=== PATIENT | male | born 1945 | race African-American/Black ===

== ENCOUNTER 2023-02-09 08:01 | Emergency (ER) | payer MEDICARE, OTHER | END 2023-02-09 08:32 | disposition home or self-care (01) | LOC: BURERS 08:01 | DX: U07.1 COVID-19 (principal); I10 Essential (primary) hypertension | CPT/HCPCS: 87635; 99283 ==

== ENCOUNTER 2024-02-24 19:22 | Emergency (ER) | payer MEDICARE ==
[~2024-02-24 19:22] MED LIST: Rocuronium Bromide 10 MG/ML (10ML VIAL) ONE
[2024-02-24] MEDS ORDERED: fentaNYL 50 mcg/mL 1 mL Vial ONE ×2 (19:35→19:50)
[2024-02-24] MEDS ORDERED: cefTRIAXone (ROCEPHIN) 2 GM VIAL ONE (19:54)
[2024-02-24 19:56] LABS: Hematocrit 50.2 % (42.0-52.0); Hemoglobin 16.3 g/dL (14.0-18.0); Mean Corpuscular HGB CONC 32.5 g/dL (32.0-36.0); Mean Corpuscular Hemoglobin 28.8 pg (27.0-31.0); Mean Corpuscular Volume 88.7 fl (78.0-98.0); Platelet Count 222 10x3/uL (130-400); RBC Distribution Width 13.6 % (11.5-14.5); Red Blood Cell (RBC) Count 5.66 mill/uL (4.70-6.10); White Blood Cell (WBC) Count 19.7 10x3/uL (4.8-10.8)
[2024-02-24 20:09] LABS: ALT (SGPT) 54 U/L (8-55); AST (SGOT) 48 U/L (5-34); Albumin 4.5 g/dL (3.4-4.8); Alkaline Phosphatase 107 U/L (40-110); Anion Gap 21 mmol/L (10-20); BUN (Urea Nitrogen) 21 mg/dL (8.4-25.7); Bilirubin, Total 0.3 mg/dL (0.2-1.2); Calc. Creatinine Clearance 0 mL/min (70-130); Carbon Dioxide 19 mmol/L (23-31); Chloride 106 mmol/L (98-107); Estimated GFR 42; Globulin 5.2 g/dL (2.4-3.5); Glucose 141 mg/dL (83-110); Potassium 4.2 mmol/L (3.5-5.1); Protein, Total 9.7 g/dL (5.8-8.1); Sodium 142 mmol/L (136-145)
[2024-02-24 20:10] LABS: Troponin I 0.111 ng/mL (< 0.028)
[2024-02-24 20:15] LABS: Eosinophils 1 % (0-10); Lymphocytes 48 % (21-51); MDiff Complete? YES; Monocytes 11 % (0-10); Neutrophil 21 % (42-75)
[2024-02-24] MEDS ORDERED: Vancomycin 1 GM VIAL ONE (20:32)
[2024-02-24 20:55] LABS: Base Excess-Venous -13.9 mmol/L (-2.0 to 3.0); Bicarbonate (HCO3v) 21.1 mmol/L (22.0-28.0); CO2 Tension (PvCO2) 92.3 mmHg (42.0-51.0); Calcium, Ionized 1.23 mmol/L (1.15-1.33); Chloride 111 mmol/L (98-107); Hemoglobin - Calc 19.8 g/dL (14.0-18.0); Potassium 4.1 mmol/L (3.5-5.1); Sodium 145 mmol/L (138-145); vO2 Saturation-calc 70.4 % (60.0-85.0)
[2024-02-24] MEDS ORDERED: Ketamine 50 MG/ML (10ML VIAL) ONE (21:30)
== END 2024-02-24 21:10 | disposition short-term general hospital (02) ==
LOC: BURERS 19:22
DX: J96.91 Respiratory failure, unspecified with hypoxia (principal); J81.1 Chronic pulmonary edema; I10 Essential (primary) hypertension; E78.5 Hyperlipidemia, unspecified
CPT/HCPCS: 31500 ×2; 70450; 71045; 71260; 74177; 80053; 82330; 82435; 82803; 82962; 84132; 84295; 84484; 85014; 85025; 93005; 94002; 94760; 96365; 96375; 99285; J0696; J3010; J3370; 36416